=== PATIENT | male | born 1985 | race Caucasian/White ===

== ENCOUNTER 2017-12-10 12:47 | Emergency (ER) | payer OTHER ==
[~2017-12-10] VITALS: Ht 175.3 cm; Wt 63.5 kg
== END 2017-12-10 14:50 | disposition home or self-care (01) ==
LOC: ER 12:47
DX: S61.211A Laceration without foreign body of left index finger without damage to nail, initial encounter (principal); W26.0XXA Contact with knife, initial encounter; Y93.89 Activity, other specified; Y92.89 Other specified places as the place of occurrence of the external cause; Y99.8 Other external cause status

== ENCOUNTER 2022-08-31 21:39 | Emergency (ER) | payer OTHER ==
[~2022-08-31] VITALS: Ht 175.3 cm; Wt 61.2 kg
[2022-08-31] MEDS ORDERED: CARAFATE1 GM PO (23:53)
== END 2022-09-01 00:04 | disposition home or self-care (01) ==
LOC: ER 21:39
DX: K29.70 Gastritis, unspecified, without bleeding (principal)